=== PATIENT | female | born 1985 | race Hispanic/Latino ===

== ENCOUNTER 2019-07-30 09:57 | Outpatient (AMBR) | payer OTHER, SELFPAY ==
--- NOTE | 2019-07-30 12:26 | PT.ODS1RPT ---
PT OP Progress/Discharge Note Date of Service: July 30, 2019 Progress Note/DC Note Progress Note/Discharge Note: DC Note Patient Information Visit Reasons: left shoulder Medical Diagnosis: S43.422A Treatment Dx #1: Left Shoulder Pain Treatment Dx #2: Left Shoulder Mobility Deficits Service Continue Service or Discharge: Discharge Discharge Date: 07/30/19 Status Subjective: Pt mention that her shoulder is still sore; feels worse today since her MD was moving the shoulder around yesterday. Pt will stop PT and is being refer to shoulder specialist in [place], [place]. Pt still has locking and popping of the shoulder with certain movement and activities. Pt has limitation with pushing, pulling, lifting, overhead motions, work duties, and performing ADLs. Objective: Left Shoulder AROM: all motions with pain Flexion: 150 deg Abduction: 130 deg External Rotation: 80 deg Internal Rotation: 60 deg Left Shoulder PROM: all motions are WNL with pain in all plane Left Shoulder MMTs: grossly 3-/5 Left Scapula MMTs: grossly 3-/5 Assessment: Pt has demonstrated improve with shoulder mobility, however, unable to reach full shoulder ROM due to pain and locking of the shoulder. Pt continues to have arc of pain up to 90 deg of shoulder flexion and abduction causing a deep joint pain. Due to Pt's continue shoulder pain Pt has limitation with overhead motions, lifting, chores, self care, work duties, and performing normal ADLs. At this time Pt will be release from physical therapy due to no further authorized visit. Pt did not meet set goals in therapy, thank you for your referrals. Plan: D/C home with [facility] and follow up with MD Office Procedures PT Procedures PT Date of Service: 07/30/19 Therapeutic Exercise 30 minutes: Yes
== END 2019-08-23 23:59 | disposition home or self-care (01) ==
PROVIDERS: PCP Family Medicine; Referring Provider Family Medicine; Visit Provider Family Medicine
DX: S43.422D Sprain of left rotator cuff capsule, subsequent encounter (principal); M25.512 Pain in left shoulder; X58.XXXD Exposure to other specified factors, subsequent encounter
CPT/HCPCS: 97110

== ENCOUNTER 2020-12-21 10:26 | Outpatient (AMBR) | payer OTHER, SELFPAY ==
--- NOTE | 2020-11-25 14:06 | PTNOTE_ITS ---
PT OP Initial Eval Patient Information Visit Reasons: post op left shoulder Medical Diagnosis: Z47.89 Treatment Dx #1: Left Shoulder Mobility Deficits Treatment Dx #2: Left Shoulder Weakness Start of Care: 11/25/20 Date of Onset: 11/04/20 Initial Assessment Subjective Pt is a 34 y/o female s/p left shoulder rotator cuff repair 11/04/20. Pt still has a lot of pain 7/10 with all activities. Pt has limitation with lifting, self care, chores, cooking, cleaning, overhead motions, work duties, and recreational activities. One of Pt's goal is to return back to work. Objective Left Shoulder PROM Flexion: 70 deg Abduction: 60 deg ER and IR: unable Left Shoulder AROM Flexion: 40 deg Abduction: 20 deg ER and IR: unable Left Shoulder MMTs: grossly 2-/5 Left Scapula MMTs: grossly 2-/5 Assessment Pt demonstrate left shoulder mobility and strength deficits s/p shoulder surgery leading to decline function. Pt will benefit from physical therapy to increase ROM, strength, and work on shoulder stability. Short Term and Longterm Goals 1) Increase left shoulder PROM WNL in 12 wks to prevent frozen shoulder 2) Increase left shoulder AROM WFL in 12 wks to be able to perform overhead motions 3) Increase left shoulder MMTs grossly to 4-/5 in 12 wks to be able to perform work duties 4) Increase left scapula MMTs grossly to 3+/5 in 12 wks to be able to perform self care activities 5) Indep with HEP Treatment Plan 1) Manual Therapy 2) Therapeutic Activities 3) Therapeutic Exercises 4) Modalities (ice, heat, estim) Frequency and Duration 2 x wk for 12 wks Certification Dates: 11/25/20 to 02/25/21 Office Procedures PT Procedures PT Date of Service: 11/25/20 OP PT Eval Mod Complex 30 minutes: Yes
--- NOTE | 2020-11-29 14:37 | PT.ODAYNRPT ---
PT Outpatient Daily Note Date of Service: 11/29/20 OP Daily Note Visit Reasons: post op left shoulder Outpatient Physical Therapy Treatment Date: 11/29/20 Subjective: Pt mention that her shoulder is sore. Pt feels that there's a pinch nerve when she picks up her arm Objective: Please see flow chart for list of ther ex performed Assessment: frequent cues to decrease guarding with PROM. able to increase shoulder flexion and abduction PROM up to 90 deg Plan: Continue with PT Length of Time (minutes) of Treatment: 30 Minutes Office Procedures PT Procedures PT Date of Service: 11/25/20 OP PT Eval Mod Complex 30 minutes: Yes PT Procedures PT Date of Service: 11/29/20 Therapeutic Exercise 30 minutes: Yes
--- NOTE | 2020-12-01 14:31 | PT.ODAYNRPT ---
PT Outpatient Daily Note Date of Service: 12/01/20 OP Daily Note Visit Reasons: post op left shoulder Outpatient Physical Therapy Treatment Date: 12/01/20 Subjective: Pt's shoulder sore after last treatment session. Pt stated that she notice her ROM is improving Objective: Please see flow chart for list of ther ex performed Assessment: increase PROM in flexion, abduction, and scaption beyond shoulder height in supine. Pt demonstrate less pain with all exercises performed today Plan: Continue with PT Length of Time (minutes) of Treatment: 40 Minutes Office Procedures PT Procedures PT Date of Service: 11/25/20 OP PT Eval Mod Complex 30 minutes: Yes PT Procedures PT Date of Service: 12/01/20 Therapeutic Exercise 30 minutes: Yes Manual Marine Radio Installer And Servicer 15 minutes: Yes PT Procedures PT Date of Service: 11/29/20 Therapeutic Exercise 30 minutes: Yes
--- NOTE | 2020-12-09 16:32 | PT.ODAYNRPT ---
PT Outpatient Daily Note Date of Service: 12/09/20 OP Daily Note Visit Reasons: post op left shoulder Outpatient Physical Therapy Treatment Date: 12/09/20 Subjective: Pt's shoulder really sore. Pt has been doing more of the exercises and chore at home. Pt's unsure of how much she can do today in therapy. Objective: Left Shoulder PROM Flexion: 140 deg Scaption: 120 deg Abduction: 130 deg Assessment: Pt continues to improve with passive ROM; today Pt very guarded and compensate with AAROM exercise due to pain and soreness from her previous activities. In supine Pt tolerate PROM with decrease pain. Plan: Continue with PT Length of Time (minutes) of Treatment: 30 Minutes Office Procedures PT Procedures PT Date of Service: 11/25/20 OP PT Eval Mod Complex 30 minutes: Yes PT Procedures PT Date of Service: 12/01/20 Therapeutic Exercise 30 minutes: Yes Manual Milk Of Lime Slaker 15 minutes: Yes PT Procedures PT Date of Service: 12/09/20 Therapeutic Exercise 30 minutes: Yes PT Procedures PT Date of Service: 11/29/20 Therapeutic Exercise 30 minutes: Yes
--- NOTE | 2020-12-15 09:51 | PTNOTE_ITS ---
PT Outpatient Daily Note Date of Service: 12/15/20 OP Daily Note Visit Reasons: post op left shoulder Outpatient Physical Therapy Treatment Date: 12/15/20 Subjective: Pt mention that shoulder feels really good. Objective: Please see flow chart for list of ther ex performed Assessment: tolerate exercises with minimal pain and demonstrate good PROM Plan: Continue with PT Length of Time (minutes) of Treatment: 30 Minutes Office Procedures PT Procedures PT Date of Service: 11/25/20 OP PT Eval Mod Complex 30 minutes: Yes PT Procedures PT Date of Service: 12/01/20 Therapeutic Exercise 30 minutes: Yes Manual Client Technologies Analyst 15 minutes: Yes PT Procedures PT Date of Service: 12/09/20 Therapeutic Exercise 30 minutes: Yes PT Procedures PT Date of Service: 11/29/20 Therapeutic Exercise 30 minutes: Yes PT Procedures PT Date of Service: 12/15/20 Therapeutic Exercise 30 minutes: Yes
--- NOTE | 2020-12-21 11:12 | PTNOTE_ITS ---
PT OP Progress/Discharge Note Date of Service: 12/21/20 Progress Note/DC Note Progress Note/Discharge Note: Progress Note Patient Information Visit Reasons: post op left shoulder Medical Diagnosis: Z47.89 Treatment Dx #1: Left Shoulder Mobility Deficits Treatment Dx #2: Left Shoulder Weakness Service Continue Service or Discharge: Continue Service Certification Date Certification Dates: 12/21/20 to 03/23/21 Status Subjective: Pt mention that her shoulder feels better, however, continues to have intermittent morning stiffness. Pt notice that she has been able to perform self care, lift to shoulder height, and light chores around the house with less limitation. Pt still has difficulty with overhead motions, reaching behind her back, and lifting heavier objects. Pt will be seeing her surgeon tomorrow for a follow up. Objective: Left Shoulder PROM Flexion: 160 deg Abduction: 140 deg ER: 90 deg IR: 60 deg Left Shoulder AROM Flexion: 90 deg Abduction: 85 deg ER and IR: NT Left Shoulder MMTs: grossly 3-/5 Left Scapula MMTs: grossly 3-/5 Assessment: Pt continues to progress with shoulder ROM and strength allowing her to resume light ADLs, self care, and chores around the house with less limitation. Pt has not met set goals and will continue to benefit from physical therapy to be able to perform overhead motions, lifting, and return back to work safely; thank you for your referrals. Plan: Continue with PT/POC Office Procedures PT Procedures PT Date of Service: 11/25/20 OP PT Eval Mod Complex 30 minutes: Yes PT Procedures PT Date of Service: 12/01/20 Therapeutic Exercise 30 minutes: Yes Manual Sales Support Coordinator 15 minutes: Yes PT Procedures PT Date of Service: 12/09/20 Therapeutic Exercise 30 minutes: Yes PT Procedures PT Date of Service: 12/21/20 Therapeutic Exercise 45 minutes: Yes PT Procedures PT Date of Service: 11/29/20 Therapeutic Exercise 30 minutes: Yes PT Procedures PT Date of Service: 12/15/20 Therapeutic Exercise 30 minutes: Yes
== END 2020-12-22 23:59 | disposition home or self-care (01) ==
PROVIDERS: PCP Family Medicine; Referring Provider Family Medicine; Visit Provider Physician Assistant
DX: Z47.89 Encounter for other orthopedic aftercare (principal); M25.512 Pain in left shoulder; R53.1 Weakness
CPT/HCPCS: 97110; 97140; 97162

== ENCOUNTER 2021-01-26 10:33 | Outpatient (AMBR) | payer OTHER, SELFPAY ==
--- NOTE | 2020-12-31 11:13 | PT.ODAYNRPT ---
PT Outpatient Daily Note Date of Service: 12/31/20 OP Daily Note Visit Reasons: post op left shoulder Outpatient Physical Therapy Treatment Date: 12/31/20 Subjective: Pt's shoulder sore due to swimming and perform more houshold tasks Objective: Please see flow chart for list of ther ex performed Assessment: tolerate exercises; due to soreness Pt demonstrate decrease shoulder flexion and abduction AROM. Plan: Continue with PT Length of Time (minutes) of Treatment: 30 Minutes Office Procedures PT Procedures PT Date of Service: 12/31/20 Therapeutic Exercise 30 minutes: Yes
--- NOTE | 2021-01-07 10:32 | PT.ODAYNRPT ---
PT Outpatient Daily Note Date of Service: 01/07/21 OP Daily Note Visit Reasons: post op left shoulder Outpatient Physical Therapy Treatment Date: 01/07/21 Subjective: doing well today and not that sore from last time. More sore from day to day activites. Objective: Manual; PROM left shoulder flexion, abduction, and external rotation x 6 min. Assessment: pt tolerated all therex well with good activity tolerance throughout program. added supine cane press to program and pt was able to do it with manageable discomfort for all reps. pt was able to increase ROM in PROM in shoulder flexion, abduction, and er and tolerated it well throughout. Plan: continue with POC Length of Time (minutes) of Treatment: 30 Minutes Office Procedures PT Procedures PT Date of Service: 01/07/21 Therapeutic Exercise 30 minutes: Yes PT Procedures PT Date of Service: 12/31/20 Therapeutic Exercise 30 minutes: Yes
--- NOTE | 2021-01-14 11:01 | PT.ODAYNRPT ---
PT Outpatient Daily Note Date of Service: 01/14/21 OP Daily Note Visit Reasons: post op left shoulder Outpatient Physical Therapy Treatment Date: 01/14/21 Subjective: Pt reports she has pain with reaching OH Objective: See F/S for therex MT: PPM shoulder abduction x5' Assessment: Pt was able to push through some pain that is likely from adhesions into FF and abduction AROM and was able to do 20 reps in supine to about 150 deg. She was encouraged to get some pulleys for home use and do AROM in supine to get into that higher range to avoid capsular tightness. Plan: Continue per POC Length of Time (minutes) of Treatment: 30 Minutes Office Procedures PT Procedures PT Date of Service: 01/07/21 Therapeutic Exercise 30 minutes: Yes PT Procedures PT Date of Service: 12/31/20 Therapeutic Exercise 30 minutes: Yes PT Procedures PT Date of Service: 01/14/21 Therapeutic Exercise 30 minutes: Yes
--- NOTE | 2021-01-18 11:01 | PT.ODAYNRPT ---
PT Outpatient Daily Note Date of Service: 01/18/21 OP Daily Note Visit Reasons: post op left shoulder Outpatient Physical Therapy Treatment Date: 01/18/21 Subjective: Sore from last time, but I can move more it seems. Objective: Manual; PROM ER, ABD, FLX - 7 min Please see flowsheet for therex performed Assessment: Pt tolerated all therex well with good teach back and activity tolerance. Focused more on AROM ER, ABD, IR to increase ROM in those planes. Plan: Continue with POC Length of Time (minutes) of Treatment: 30 Minutes Office Procedures PT Procedures PT Date of Service: 01/07/21 Therapeutic Exercise 30 minutes: Yes PT Procedures PT Date of Service: 12/31/20 Therapeutic Exercise 30 minutes: Yes PT Procedures PT Date of Service: 01/14/21 Therapeutic Exercise 30 minutes: Yes PT Procedures PT Date of Service: 01/18/21 Therapeutic Exercise 30 minutes: Yes
--- NOTE | 2021-01-26 11:22 | PT.ODAYNRPT ---
PT Outpatient Daily Note Date of Service: 01/26/21 OP Daily Note Visit Reasons: post op left shoulder Outpatient Physical Therapy Treatment Date: 01/26/21 Subjective: pt states she is moving her shoulder more. she is also getting muscle spasms. Objective: see flow sheet. Assessment: during AROM in supine and sidelying she demonstrates good ROM and understands the cuing to keep her form. during PROM she has no muscle limitations but the pain she has gets when at EROM. explained to pt about her PROM and agrees with the pain being reason of increasing mobility. she needed more assistance with supine SA punches exercises in order to active the scapula muscle. Plan: continue POC per PT. Length of Time (minutes) of Treatment: 30 Minutes Office Procedures PT Procedures PT Date of Service: 01/07/21 Therapeutic Exercise 30 minutes: Yes PT Procedures PT Date of Service: 12/31/20 Therapeutic Exercise 30 minutes: Yes PT Procedures PT Date of Service: 01/14/21 Therapeutic Exercise 30 minutes: Yes PT Procedures PT Date of Service: 01/18/21 Therapeutic Exercise 30 minutes: Yes PT Procedures PT Date of Service: 01/26/21 Therapeutic Exercise 30 minutes: Yes
== END 2021-01-26 23:59 | disposition home or self-care (01) ==
PROVIDERS: PCP Physician Assistant; Referring Provider Physician Assistant; Visit Provider Physician Assistant
DX: Z71.89 Other specified counseling (principal); M25.512 Pain in left shoulder; R53.1 Weakness
CPT/HCPCS: 97110

== ENCOUNTER 2021-02-22 11:35 | Outpatient (AMBR) | payer OTHER, SELFPAY ==
--- NOTE | 2021-01-26 11:22 | PTNOTE_ITS ---
PT Outpatient Daily Note Date of Service: 01/26/21 OP Daily Note Visit Reasons: post op left shoulder Outpatient Physical Therapy Treatment Date: 01/26/21 Subjective: pt states she is moving her shoulder more. she is also getting muscle spasms. Objective: see flow sheet. Assessment: during AROM in supine and sidelying she demonstrates good ROM and understands the cuing to keep her form. during PROM she has no muscle limitations but the pain she has gets when at EROM. explained to pt about her PROM and agrees with t he pain being reason of increasing mobility. she needed more assistance with supine SA punches exercises in order to active the scapula muscle. Plan: continue POC per PT. Length of Time (minutes) of Treatment: 30 Minutes Office Procedures PT Treatments PT Date of Service: 02/08/21 Therapeutic Exercise 30 minutes: Yes PT Treatments PT Date of Service: 02/10/21 Therapeutic Exercise 30 minutes: Yes PT Treatments PT Date of Service: 02/15/21 Therapeutic Exercise 30 minutes: Yes PT Treatments PT Date of Service: 01/28/21 Therapeutic Exercise 15 minutes: Yes Manual Rivet Heater Gas 15 minutes: Yes PT Treatments PT Date of Service: 02/18/21 Therapeutic Exercise 30 minutes: Yes PT Treatments PT Date of Service: 02/22/21 Therapeutic Exercise 30 minutes: Yes
--- NOTE | 2021-01-28 09:51 | PTNOTE_ITS ---
PT Outpatient Daily Note Date of Service: 01/28/21 OP Daily Note Visit Reasons: post op left shoulder Outpatient Physical Therapy Treatment Date: 01/28/21 Subjective: pt states her shoulder was sore after last visit but not too bad. Objective: see flow sheet. Assessment: during PROM noted her shoulder had more tension at end range compared to last visit. which indicates the soreness she has. her pain was a bit more elevated due to soreness. although she has soreness she continues to have good ROM. she was able to perform her supine punches with better understanding and no cuing. advised her to continue with ice packs at home. Plan: continue POC per PT. Length of Time (minutes) of Treatment: 30 Minutes Office Procedures PT Procedures PT Date of Service: 01/28/21 Therapeutic Exercise 15 minutes: Yes Manual Glass Installer Technician 15 minutes: Yes
--- NOTE | 2021-02-08 13:52 | PTNOTE_ITS ---
PT Outpatient Daily Note Date of Service: 02/08/2021 OP Daily Note Visit Reasons: post op left shoulder Outpatient Physical Therapy Treatment Date: 02/08/21 Subjective: pt mentioned having the muscle kristen and used ice pack first for a few mins and used hot pack after. pt states the muscle knot was gone after that. Objective: see flow sheet. Assessment: pt's flexion AROM still needs more improvement as observed during supine position. her ER and ABD are doing better. added light thera band to strengthen her shoulder in different motions. pt tends to lfex her head down with shoulder flexion but she stopped after cuing to relax her head and only focus on shoulder motion. pt refused ice pack. advised her to use ice pack at home. Plan: continue POC per PT. Length of Time (minutes) of Treatment: 30 Minutes Office Procedures PT Procedures PT Date of Service: 02/08/21 Therapeutic Exercise 30 minutes: Yes PT Procedures PT Date of Service: 01/28/21 Therapeutic Exercise 15 minutes: Yes Manual Cut Off Saw Operator Pipe Blanks 15 minutes: Yes
--- NOTE | 2021-02-10 13:44 | PT.ODS1RPT ---
PT OP Progress/Discharge Note Date of Service: 02/10/21 Progress Note/DC Note Progress Note/Discharge Note: Progress Note Patient Information Visit Reasons: post op left shoulder Medical Diagnosis: Z47.89 Treatment Dx #1: Left Shoulder Mobility Deficits Treatment Dx #2: Left Shoulder Weakness Service Continue Service or Discharge: Continue Service Certification Date Certification Dates: 02/10/21 to 05/13/21 Status Subjective: Pt's shoulder feels much better. Pt mention that overhead motions, reaching, light lifting, and self care activities are getting easier. Pt still has limitation with heavy lifting, reaching behind her back, and perform certain chores around her house. Objective: Left Shoulder AROM Flexion: 160 deg Abduction: 140 deg External Rotation: 90 deg Internal Rotation: 50 deg Left Shoulder MMTs: grossly 3/5 Left Scapula MMTs: grossly 3/5 HBB: Thumb at L4 Assessment: Pt continues to slowly improve with shoulder ROM and strength allowing her to perform light ADLs, chores, light lifting, and self care with less limitation. Pt has not met set goals and will continue to benefit from physical therapy to reach set goals; thank you for your referrals. Plan: Continue with PT/POC Office Procedures PT Procedures PT Date of Service: 02/08/21 Therapeutic Exercise 30 minutes: Yes PT Procedures PT Date of Service: 02/10/21 Therapeutic Exercise 30 minutes: Yes PT Procedures PT Date of Service: 01/28/21 Therapeutic Exercise 15 minutes: Yes Manual Customer Operations Manager 15 minutes: Yes
--- NOTE | 2021-02-15 14:38 | PT.ODAYNRPT ---
PT Outpatient Daily Note Date of Service: 02/15/21 OP Daily Note Visit Reasons: post op left shoulder Outpatient Physical Therapy Treatment Date: 02/15/21 Subjective: Pt's shoulder is feeling better, however, still catches when it comes down from elevation. Pt still has difficulty reaching behind her back or tieing her son's hair. Objective: Please see flow chart for list of ther ex performed Assessment: tolerate exercises with minimal pain Plan: Continue with PT Length of Time (minutes) of Treatment: 30 Minutes Office Procedures PT Procedures PT Date of Service: 02/08/21 Therapeutic Exercise 30 minutes: Yes PT Procedures PT Date of Service: 02/10/21 Therapeutic Exercise 30 minutes: Yes PT Procedures PT Date of Service: 02/15/21 Therapeutic Exercise 30 minutes: Yes PT Procedures PT Date of Service: 01/28/21 Therapeutic Exercise 15 minutes: Yes Manual Foreign Exchange Position Clerk 15 minutes: Yes
--- NOTE | 2021-02-18 10:07 | PT.ODAYNRPT ---
PT Outpatient Daily Note Date of Service: 02/18/21 OP Daily Note Visit Reasons: post op left shoulder Outpatient Physical Therapy Treatment Date: 02/18/21 Subjective: Pt's shoulder was cramping less night and unable to sleep. Otherwise it's been doing pretty good. Objective: Please see flow chart for list of ther ex performed Assessment: tolerate exercises with minimal pain Plan: Continue with PT Length of Time (minutes) of Treatment: 30 Minutes Office Procedures PT Procedures PT Date of Service: 02/08/21 Therapeutic Exercise 30 minutes: Yes PT Procedures PT Date of Service: 02/10/21 Therapeutic Exercise 30 minutes: Yes PT Procedures PT Date of Service: 02/15/21 Therapeutic Exercise 30 minutes: Yes PT Procedures PT Date of Service: 01/28/21 Therapeutic Exercise 15 minutes: Yes Manual Wind Field Service Manager 15 minutes: Yes PT Procedures PT Date of Service: 02/18/21 Therapeutic Exercise 30 minutes: Yes
--- NOTE | 2021-02-22 13:56 | PTNOTE_ITS ---
PT Outpatient Daily Note Date of Service: 02/22/21 OP Daily Note Visit Reasons: post op left shoulder Outpatient Physical Therapy Treatment Date: 02/22/21 Subjective: Pt's shoulder feels better. Pt was able to rest over the weekend and it helps. Objective: Please see flow chart for list of ther ex performed Assessment: demonstrate improvement with shoulder ER AROM with less pain. Pt still has fatigue towards the end of PT session leading to difficulty with full shoulder flexion and abduction AROM. Plan: Continue with PT Length of Time (minutes) of Treatment: 30 Minutes Office Procedures PT Procedures PT Date of Service: 02/08/21 Therapeutic Exercise 30 minutes: Yes PT Procedures PT Date of Service: 02/10/21 Therapeutic Exercise 30 minutes: Yes PT Procedures PT Date of Service: 02/15/21 Therapeutic Exercise 30 minutes: Yes PT Procedures PT Date of Service: 01/28/21 Therapeutic Exercise 15 minutes: Yes Manual Aluminum Boat Inspector 15 minutes: Yes PT Procedures PT Date of Service: 02/18/21 Therapeutic Exercise 30 minutes: Yes PT Procedures PT Date of Service: 02/22/21 Therapeutic Exercise 30 minutes: Yes
== END 2021-02-22 23:59 | disposition home or self-care (01) ==
PROVIDERS: PCP Physician Assistant; Referring Provider Physician Assistant; Visit Provider Physician Assistant
DX: Z47.89 Encounter for other orthopedic aftercare (principal); M25.511 Pain in right shoulder; R53.1 Weakness
CPT/HCPCS: 97110; 97140